=== PATIENT | male | born 1985 | race Caucasian/White ===

== ENCOUNTER 2016-06-14 22:59 | Emergency (ER) | payer OTHER ==
[2016-06-14 23:46] LABS: BASOPHIL# 0.1 X10e3 (0-0.3); BASOPHIL% 0.8 % (0-2.5); DIFF IND YES; EOSINOPHIL# 0.1 X10e3 (0-0.7); EOSINOPHIL% 1.8 % (0.0-7.0); HEMATOCRIT 43.5 % (38.0-50.0); HEMOGLOBIN 13.8 gm/dL (13.0-16.0); LYMPHOCYTE# 1.9 X10e3 (1.0-3.5); LYMPHOCYTE% 28.8 % (17.0-45.0); MEAN CELL VOLUME 82.5 FL (83-96); MEAN CORPUSCULAR HEMOGLOBIN 26.3 PG (28-34); MEAN CORPUSCULAR HGB CONC 31.8 g/dL (30-36); MEAN PLATELET VOLUME 8.8 FL (6.5-11.5); MONOCYTE# 0.6 X10e3 (0-1.0); MONOCYTE% 8.1 % (3.0-12.0); NEUTROPHIL# 4.1 X10e3 (1.5-7.1); NEUTROPHIL% 60.5 % (40-75); PLATELET COUNT 300 X10e3 (140-420); RED BLOOD COUNT 5.27 X10e (3.90-5.60); RED CELL DISTRIBUTION WIDTH 33.4 % (11.0-15.5); WHITE BLOOD COUNT 6.8 X10e3 (4.0-10.5)
[2016-06-15 00:02] LABS: PLATELET ESTIMATE NORMAL (NORMAL)
[2016-06-15 00:03] LABS: ANISOCYTOSIS MOD; POIKILOCYTOSIS SL; TARGET CELLS SL
[2016-06-15 00:04] LABS: HYPOCHROMIA SL; OVALOCYTES PRESENT; TEAR DROP CELLS PRESENT
[2016-06-15 00:05] LABS: DIFFERENTIAL COMMENT OCC.ATY.LYMPH
[2016-06-15 00:23] LABS: ALBUMIN SERUM 3.8 g/dL (3.5-5.0); BILIRUBIN, DIRECT 0.1 mg/dL (0.0-0.2); BILIRUBIN,INDIRECT 0.4 mg/dL (0.0-0.9); BILIRUBIN,TOTAL 0.5 mg/dL (0.2-2.0); GLOM FILT RATE Estimated 98.5 mL/min (>60); POTASSIUM 3.2 mmol/L (3.5-5.1); PROTEIN TOTAL SERUM 6.6 g/dL (6.0-8.3)
[2016-06-15 00:44] LABS: AMPHETAMINE NEG (NEG); BARBITURATES NEG (NEG); BENZODIAZEPINES NEG (NEG); COCAINE NEG (NEG); MARIJUANA NEG (NEG); OPIATES NEG (NEG); TRICYCLIC ANTIDEPRESSANTS POS (NEG); U METHADONE NEG (NEG)
== END 2016-06-15 05:00 ==
LOC: CED 22:59
PROVIDERS: Emergency Medicine
DX: F10.129 Alcohol abuse with intoxication, unspecified (principal); Z88.0 Allergy status to penicillin; I10 Essential (primary) hypertension
CPT/HCPCS: 36415; 51701; 80048; 80076; 80307; 85025; 99283; 99285; G0480

== ENCOUNTER 2016-06-15 08:10 | Inpatient (IN) | payer OTHER ==
--- NOTE | ~2016-06-15 | PA ---
Unit #: [id number] #: [id number] Patient: SUN [facility]LEY [id number] [facility] [address] [place] [id number] I MR#: [id number] NAME: SUN DAILEY ROOM: 81 Age: 31 Sex: M Admission Date: 06/15/2016 : 1985 Date of Assessment: 06/15/2016 Attending Physician: Ellen Pemberton M.D. Admitting Physician: Ellen Pemberton M.D. Primary Care Physician: Primary Care Physician No PSYCHIATRIC ASSESSMENT DATE OF SERVICE 06/15/2016. IDENTIFYING DATA Mr. Dailey is a 31-year-old single white male, who is a resident of [place], [place], and is known to us from previous encounter and was self-referred to the hospital on a voluntary basis. CHIEF COMPLAINT "I have been trying to kill myself." HISTORY OF PRESENT ILLNESS Mr. Dailey is a 31-year-old white male, who [facility] evening due to being intoxicated and that he is trying to kill himself and had a blood alcohol level of 0.298 and was sent to the emergency room at [facility] for medical clearance and reports that he drank one and a half pint of straight vodka and has been drinking daily because he wanted to end his life and reports that he has been living at [facility] since his discharge from [facility] in 03/2016 and reported "I cannot take that place anymore, I get up at 5 in the morning to work and they have you doing so much you can to go to bed until midnight." The patient reports increasing depression, anxiety, irritability, and continued to endorse suicidal ideations and was seen to be a danger to self and others and as such, a recommendation for inpatient level of care for safety and stabilization was made and he was transferred to us. SUBSTANCE ABUSE HISTORY The patient reports a long history of substance abuse and dependence as he has experimented with cocaine and cannabis, but alcohol has been his drug of choice and has been drinking regularly and heavily. PAST PSYCHIATRIC HISTORY The patient has had a history of inpatient psychiatric hospitalization at [facility] and currently has been staying in a [facility] house, and review of the medical records indicate that he has been diagnosed and treated for mood disorder and is supposed to be on a combination of Remeron, Vistaril, and Neurontin, though it is not clear if he has been compliant with the medication. PAST MEDICAL HISTORY No acute or chronic medical illnesses. Unit #: [id number] #: [id number] Patient: SUN DAILEY ALLERGIES No known medication allergies. PERSONAL AND SOCIAL HISTORY A 31-year-old white male, who reports that he is single, unemployed, and has been staying at a local [facility] house called [facility]. MENTAL STATUS EXAMINATION Young white male, who was casually dressed with fair personal hygiene, appears to be in no acute distress or discomfort. He was awake and alert on interaction with intact orientation to time, place, and person. His mood was anxious and depressed with a congruent affect. His speech was slow and restricted in content. His thought processes were disorganized with some looseness of associations and suicidal ideations. His insight and judgment remain significantly impaired. DIAGNOSTIC IMPRESSION Psychiatric: Major depressive disorder, recurrent, moderate, without psychotic features and alcohol dependence, moderate, in acute withdrawals. Medical: None. Stressors: Moderate psychosocial stressors. TREATMENT PLAN 1. The patient has presented with a history of substance abuse and mood disorder and has been decompensating and will need inpatient hospitalization for detoxification, safety, and stabilization. We will start him back on his home medications. We will adjust the medications and monitor response. 2. Supportive therapy was provided to the patient. 3. Safe, structured, and nourishing environment will be provided. ESTIMATED LENGTH OF STAY 5 to 7 days. ABILITY TO HELP SELF Limited. WILLINGNESS TO HELP SELF The patient appears to be willing to help self. STRENGTHS 1. Communicative. 2. Cooperative. PROBLEMS 1. Chronic chemical dependency. 2. Chronic dysphoric symptoms. 3. Poor social support system. DISCHARGE CRITERIA This will be contingent upon the patient's ability to show resolution of his depression and anxiety and his ability to stay safe and sober, particularly after discharge from the hospital. Dictated by... Ellen Pemberton M.D. Unit #: [id number] #: [id number] Patient: SUN DAILEY IAA/modl TD: 06/16/2016 13:09 JOB #: [id number] PSYCHIATRIC ASSESSMENT Page 1 of 1 X Ellen Pemberton MD PSYCHIATRIC ASSESSMENT
--- NOTE | ~2016-06-15 | PN ---
Unit #: [id number] #: [id number] Patient: SUN DAILEY [id number] [facility] [address] [place] [address] [id number] MR#: [id number] NAME: SUN DAILEY ROOM: [facility] Age: 31 Sex: M Admission Date: 06/15/2016 : 1985 Attending Physician: Ellen Pemberton M.D. Admitting Physician: Ellen Pemberton M.D. Primary Care Physician: Primary Care Physician Karen KENNEDY NOTES DATE OF SERVICE: 06/16/2016 SUBJECTIVE Mr. Dailey is a 31-year-old white male who was seen today and chart was reviewed, and case was discussed with the staff. He has been anxious, withdrawn, and has been showing very negative attitude and behavior, and actively trying to mask and minimize his presentation, and noted when he came in extremely intoxicated in the blood, alcohol level was almost 60 and intubated here, we have to sent him out of the emergency room and he continued to endorse suicidal ideation, he now states that there is nothing wrong with him. He should not be here and he was not drinking. He just had a couple of drinks on that day and that he has not been suicidal and as such, he has showing very poor insight into his situation. He also mentioned upon presentation that he was done at the bigger house where he has been staying [facility], but now he has been stating that he has to come here just, and he can go back there and appears to be eager to get back there in [facility], the motivation behind his treatment; however, he remains at poor prognosis on discharged. Dictated by... Dario Antonio/andrea TD: 06/16/2016 11:19 JOB #: [id number] [facility] PROGRESS NOTES Page 1 of 1 X Ellen Pemberton MD PROGRESS NOTE
--- NOTE | ~2016-06-15 | PN ---
Unit #: [id number] #: [id number] Patient: SUN DAILEY [id number] [facility] [address] [place] [address] [id number] I MR#: [id number] NAME: SUN DAILEY ROOM: [facility] Age: 31 Sex: M Admission Date: 06/15/2016 : 1985 Attending Physician: Ellen Pemberton M.D. Admitting Physician: Ellen Pemberton M.D. Primary Care Physician: Karen Primary Care Physician [facility] PROGRESS NOTES DATE 06/17/2016 DISCUSSION Mr. Dailey is a 31-year-old white male who was seen today and chart was reviewed, and case was discussed with the staff. He has been doing fairly well but actively trying to mask and minimize his presentation and stating that there is nothing wrong with him and he is trying to mask all the presentation that led to his hospitalization. Also informed me this morning that he would not be going back to [facility], even though until yesterday he was telling me that he needs to get back to [facility] and the only reason he is here is because [facility] wants him to get detoxed and he wants to satisfy them so he can go back and now he tells me that he was going to [facility] and wants to talk to them about it. MENTAL STATUS EXAMINATION Young white male who was casually dressed and fair personal hygiene. Appears to be in no acute distress or discomfort. He is awake, alert and interacting and was intact to orientation. His mood is anxious with congruent affect but he denies suicidal or homicidal ideation. His insight and judgment remains significantly impaired. TREATMENT PLAN 1. We will continue him on his current medications and treatment protocol. Will monitor his response to the medications, and make further adjustments as needed. 2. We will continue to followup. Dictated by... Dario Antonio/dayana TD: 06/17/2016 09:15 Unit #: [id number] #: [id number] Patient: SUN DAILEY JOB #: [id number] [facility] PROGRESS NOTES Page 1 of 1 X Niecy,Ellen LAL X PROGRESS NOTE
--- NOTE | ~2016-06-15 | HP ---
Unit #: [id number] #: [id number] Patient: SUN DAILEY [id number] [facility] [address] [place] [address] [id number] I MR#: [id number] NAME: SUN DAILEY ROOM: [facility] Age: 31 Sex: M Admission Date: 06/15/2016 : 1985 Attending Physician: Ellen Pemberton M.D. Admitting Physician: Ellen Pemberton M.D. Primary Care Physician: Primary Care Physician No HISTORY AND PHYSICAL HISTORY OF PRESENT ILLNESS The patient is a 31-year-old male admitted to [facility]2016 to detox from alcohol. PAST MEDICAL HISTORY 1. Hypertension. 2. Gout. 3. History of upper GI bleed. 4. GERD. 5. Bronchitis. PAST SURGICAL HISTORY EGD. ALLERGIES Penicillin. SOCIAL HISTORY Patient lives at the [facility]. He is employed there. He uses 1 can of dip per day and drinks large amounts of vodka on a daily basis. FAMILY HISTORY Noncontributory. REVIEW OF SYSTEMS CONSTITUTIONAL: No fever or chills. HEENT: Denies any sore throat, ear pain or runny nose. CARDIOVASCULAR: Denies chest pain, irregular heart rhythm or palpitations. CHEST: Patient complains of cough and shortness of breath. GASTROINTESTINAL: Denies nausea, vomiting, diarrhea or chronic constipation. ENDOCRINE: Denies history of increased thirst or urination. No recent significant weight loss or gain. GENITOURINARY: Denies dysuria, frequency, or hematuria. SKIN: Denies any rashes. HEMATOLOGIC: Denies history of increased bleeding or bruising. MUSCULOSKELETAL: Denies any hot, swollen joints. No generalized muscle pain. NEUROLOGIC: Denies problems with vision or speech. No frequent, severe headaches. No numbness, tingling or weakness in any extremities. Denies loss of bladder or bowel control. CURRENT MEDICATIONS Unit #: [id number] #: [id number] Patient: SUN DAILEY 1. Neurontin. 2. Vistaril. 3. Remeron. PHYSICAL EXAMINATION GENERAL: He is awake, alert, oriented, in no acute distress. VITAL SIGNS: Temperature 97.9, heart rate 87, respirations 19, blood pressure 144/89. HEIGHT: 6 feet 0. WEIGHT: 250 pounds. SKIN: Warm and dry without rash or lesion. HEENT: Normocephalic. TMs not viewed. Oral and nasal passages clear. Conjunctivae clear. PERRLA. EOMs intact. NECK: Supple without lymphadenopathy or thyromegaly. HEART: Regular rate and rhythm without murmur. LUNGS: Clear. ABDOMEN: Soft, nontender. : Not done. EXTREMITIES: No evidence of cyanosis, clubbing or edema. Moves all without focal deficit. NEUROLOGICAL: Grossly within normal limits. Cranial Nerves: II: Visual quiros are intact. III, IV AND : Extraocular movements are intact. Pupils are equal, round and reactive to light. V: Facial sensation is grossly normal. VII: Facial movements and expression are normal. VIII: Auditory acuity grossly intact. IX, X: Uvula is midline. Phonation is normal. XI: Patient shrugs shoulders and turns head normally. XII: Tongue protrudes in the midline. Sensory and Motor Function: Sensory and motor sensation is grossly normal. Motor: moves all extremities well. Coordination: Gait is normal. Deep Tendon Reflexes: Intact. IMPRESSION 1. Psychiatric admission. 2. Alcohol abuse. 3. Hypertension. 4. Gout. 5. History of upper GI bleed. 6. Gastroesophageal reflux disease. 7. Bronchitis. RECOMMENDATIONS PSYCHIATRIC: Per psychiatrist. MEDICAL: No contraindications to participate in facility's activities. MEDICAL PROGNOSIS Good. MEDICAL CONDITION Stable. Dictated by... Vinnie Herrera A.P.R.N. Unit #: [id number] #: [id number] Patient: SUN DAILEY EF/kelsea TD: 06/15/2016 16:38 JOB #: [id number] HISTORY AND PHYSICAL Page 1 of 1 X VINNIE HERRERA APRN HISTORY AND PHYSICAL
--- NOTE | ~2016-06-15 | DS ---
Unit #: [id number] #: [id number] [facility]: [facility] [id number] [facility] [address] [place] [address] [id number] I MR#: [id number] NAME: SUN DAILEY ROOM: [facility] Age: 31 Sex: M Admission Date: 06/15/2016 : 1985 Discharge Date: 06/18/2016 Attending Physician: Ellen Pemberton M.D. Primary Care Physician: Primary Care Physician No DISCHARGE SUMMARY IDENTIFYING DATA Mr. Dailey is a 31-year-old single white male, who is a resident of [place], and is known to us from previous encounter, who was self-referred to the hospital on a voluntary basis. DISCHARGE DIAGNOSES Psychiatric: Major depressive disorder, recurrent, moderate, without psychotic features; alcohol dependence, moderate. Medical: None. Stressors: Moderate psychosocial stressors. HISTORY OF PRESENT ILLNESS Please see initial psychiatric evaluation for details. PAST PSYCHIATRIC HISTORY Please see initial psychiatric evaluation for details. PAST MEDICAL HISTORY Please see initial psychiatric evaluation for details. HOSPITAL COURSE The patient was admitted to the adult chemical dependency and psychiatric unit at [facility] and was oriented to the hospital environment. Routine p.r.n. medications were initiated, and he was started back on his home medications and detox protocol was initiated. However, he stated that he is not detoxing and just got here because his group home house told him that he needs to come here and that he does not need to be here and was seen to be showing poor motivation towards treatment and as such, it was decided he will be discharged home and will continue treatment on an outpatient basis. DISCHARGE MEDICATIONS Remeron 30 mg at bedtime for depression. DISCHARGE CONDITION Stable. PROGNOSIS Fair. Dictated by... Ellen Pemberton M.D. Unit #: [id number] #: [id number] Patient: SUN DAILEY IAA/modl TD: 06/18/2016 06:48 JOB #: [id number] DISCHARGE SUMMARY Page 1 of 1 X Ellen Pemberton MD X DISCHARGE SUMMARY
--- NOTE | ~2016-06-15 | CO ---
Unit #: [id number] #: [id number] Patient: SUN DAILEY [id number] [facility] [address] [place] [address] [id number] I MR#: [id number] NAME: SUN DAILEY ROOM: [facility] Age: 31 Sex: M Admission Date: 06/15/2016 : 1985 Attending Physician: Ellen Pemberton M.D. Primary Care Physician: Primary Care Physician No Consultation Date: 06/15/2016 CONSULTATION REPORT ORDERING PROVIDER Dr. Pemberton. REASON FOR CONSULTATION Bronchitis. SUBJECTIVE The patient reports that he has been sick for several days. He thinks that he has walking pneumonia. He has been coughing and short of breath, but no wheezing or fever that he knows of. OBJECTIVE The exam is unremarkable. His lungs are clear to auscultation bilaterally. ASSESSMENT Bronchitis. PLAN Plan is to start the patient on Z-Billy and cough medicine. We will continue to monitor as needed. Dictated by... Marcela Mata/andrea TD: 06/15/2016 17:14 JOB #: [id number] CONSULTATION REPORT Page 1 of 1 X VINNIE CORBETT APRN CONSULTATION REPORT
[2016-06-17 09:34] LABS: BASOPHIL% 0.3 % (0-2.5); EOSINOPHIL# 0.3 X10e3 (0-0.7); EOSINOPHIL% 3.1 % (0.0-7.0); HEMATOCRIT 46.3 % (38.0-50.0); HEMOGLOBIN 14.9 gm/dL (13.0-16.0); LYMPHOCYTE% 11.8 % (17.0-45.0); MEAN CELL VOLUME 83.7 FL (83-96); MEAN CORPUSCULAR HGB CONC 32.3 g/dL (30-36); MEAN PLATELET VOLUME 8.5 FL (6.5-11.5); MONOCYTE# 0.5 X10e3 (0-1.0); MONOCYTE% 5.7 % (3.0-12.0); NEUTROPHIL# 6.9 X10e3 (1.5-7.1); NEUTROPHIL% 79.1 % (40-75); PLATELET COUNT 315 X10e3 (140-420); RED BLOOD COUNT 5.53 X10e (3.90-5.60); RED CELL DISTRIBUTION WIDTH 32.7 % (11.0-15.5); WHITE BLOOD COUNT 8.7 X10e3 (4.0-10.5)
[2016-06-17 09:36] LABS: DIFF IND NO
[2016-06-17 09:55] LABS: ALBUMIN SERUM 3.8 g/dL (3.5-5.0); BILIRUBIN,TOTAL 0.8 mg/dL (0.2-2.0); CALCIUM SERUM 9.4 mg/dL (8.4-10.2); GLOM FILT RATE Estimated 98.5 mL/min (>60); POTASSIUM 4.6 mmol/L (3.5-5.1); PROTEIN TOTAL SERUM 6.5 g/dL (6.0-8.3)
[2016-06-17 12:35] LABS: URINE APPEARANCE CLEAR; URINE BILIRUBIN NEG (NEG); URINE BLOOD NEG (NEG); URINE COLOR DK YELLOW; URINE GLUCOSE NEG (NEG); URINE KETONE TRACE (NEG); URINE LEUKOCYTE ESTERASE 1+ (NEG); URINE NITRATE NEG (NEG); URINE PROTEIN NEG (NEG); URINE SPECIFIC GRAVITY 1.024 (1.003-1.035); URINE UROBILINOGEN 0.2 MG/DL (NEG)
[2016-06-17 12:39] LABS: URBCS1 AUWI 0-2 /[HPF] (0-2); URINE BACTERIA AUWI NEG (NEGATIVE); URINE SQUAMOUS EPITHELIAL CELL NONE SEEN /[HPF]; UWBCS1 AUWI 25-50 (0-5)
[2016-06-17 13:06] LABS: AMPHETAMINE NEG (NEG); BARBITURATES NEG (NEG); BENZODIAZEPINES POS (NEG); COCAINE NEG (NEG); MARIJUANA NEG (NEG); OPIATES NEG (NEG); TRICYCLIC ANTIDEPRESSANTS POS (NEG); U METHADONE NEG (NEG)
== END 2016-06-18 09:37 | disposition home or self-care (01) | DRG 885 ==
LOC: P1E 08:10
PROVIDERS: Psychiatry & Neurology Psychiatry
PROC: HZ2ZZZZ Detoxification Services for Substance Abuse Treatment (ICD-10-PCS; principal; 2016-06-15)
DX: F33.1 Major depressive disorder, recurrent, moderate (principal); R45.851 Suicidal ideations; I10 Essential (primary) hypertension; F10.230 Alcohol dependence with withdrawal, uncomplicated; K21.9 Gastro-esophageal reflux disease without esophagitis; M10.9 Gout, unspecified; Z88.0 Allergy status to penicillin; F17.220 Nicotine dependence, chewing tobacco, uncomplicated; J40 Bronchitis, not specified as acute or chronic; Y90.8 Blood alcohol level of 240 mg/100 ml or more
CPT/HCPCS: 80053; 80307; 81003; 85025; 86592